=== PATIENT | male | born 1955 | race Caucasian/White ===

== ENCOUNTER 2021-01-15 06:56 | Day surgery (SDC) | payer BC ==
[2021-01-13 16:34] LABS: BASOPHILS # (AUTO) 0.1 X10'3 (0-0.2); BASOPHILS % (AUTO) 1.2 % (0-1); EOSINOPHILS # (AUTO) 0.3 X10'3 (0-0.9); LYMPHOCYTES # (AUTO) 2.9 X10'3 (1.1-4.8); LYMPHOCYTES % (AUTO) 30.3 % (21-51); MEAN CORPUSCULAR HEMOGLOBIN 31.4 PG (27.0-31.0); MEAN CORPUSCULAR HGB CONC 34.1 g/dL (33.0-36.5); MEAN CORPUSCULAR VOLUME 92.1 FL (78-98); MEAN PLATELET VOLUME 8.2 FL (7.4-10.4); MONOCYTES # (AUTO) 0.8 X10'3 (0-0.9); MONOCYTES % (AUTO) 8.7 % (2-12); NEUTROPHILS # (AUTO) 5.4 X10'3 (1.8-7.7); NEUTROPHILS % (AUTO) 56.8 % (42-75); PRE OP HEMATOCRIT 54.1 % (42.0-52.0); PRE OP PLATELET COUNT 237 X10'3 (140-440); RED BLOOD COUNT 5.88 X10'6 (4.70-6.10); RED CELL DISTRIBUTION WIDTH 14.4 % (11.5-14.5)
[2021-01-13 16:45] LABS: ALBUMIN 3.6 G/DL (3.4-5.0); ALKALINE PHOSPHATASE 66 IU/L (46-116); BLOOD UREA NITROGEN 21 MG/DL (7-18); BUN/CREATININE RATIO 16.3 (5.4-32.0); CALCIUM 9.2 MG/DL (8.5-10.1); CHLORIDE 104 MMOL/L (99-107); CREATININE 1.29 MG/DL (0.60-1.10); PRE OP ALT 52 U/L (30-65); PRE OP ANION GAP 12 (8-16); PRE OP AST 18 U/L (10-37); PRE OP BILIRUB, TOTAL 0.3 MG/DL (0.0-1.0); PRE OP GLUCOSE 188 MG/DL (70-104); PRE OP SODIUM 145 MMOL/L (135-145); TOTAL CARBON DIOXIDE 28.8 MMOL/L (24-32); TOTAL PROTEIN 7.3 G/DL (6.4-8.2); eGFR 56 ML/MIN
[2021-01-13 16:46] LABS: PRE OP HEMOGLOBIN 18.5 g/dL (14.0-17.9)
[2021-01-13 16:49] LABS: PRE OP POTASSIUM 3.2 MMOL/L (3.4-5.1)
[2021-01-15] VITALS (9 sets, daily range): BP systolic 121–152; BP diastolic 73–94
[~2021-01-15] VITALS: Ht 185.4 cm; Wt 132.4 kg
[~2021-01-15 06:56] MED LIST: ARMO150T6 PO; ATOR20TA66 PO; BUPIVAcaine/PF 2.5 mg/ml (0.25%) 30ml vial ONE; CANA300T PO; CHLO25TA10 PO; DULA1.5P SQ; FLUT1BLS13 PO; LIDOcaine 1% 30ml preserv. free vial ONE; POTA-82 PO; albuterol 2.5 MG/3 ML nebule NEB ONE; ceFAZolin inj. 3,000 MG in normal saline 100ml IV soln 100 ML IV ONE; famotidine 20mg tablet PO ONE; ringers solution, lacted 1,000 ML IV SCH
[2021-01-15] MEDS ORDERED: BUPIVAcaine HCl 0.25%/EPInephrine 1:200,000 inj. 10 ML VIAL ONE (07:19)
[2021-01-15] MEDS ORDERED: insulin regular, human U-100 3ml vial - multi-dose ONE (07:33)
[2021-01-15] MEDS ORDERED: sevoflurane 250ml liquid IH ONE (07:36)
[2021-01-15] MEDS ORDERED: midazolam 1 mg/ML 2ml injection ONE (07:37)
[2021-01-15] MEDS ORDERED: fentaNYL/PF 50MCG/1 ML 2ML syringe ONE (07:37)
[2021-01-15] MEDS ORDERED: ringers solution, lacted 1,000 ML IV SCH (08:45)
[2021-01-15] MEDS ORDERED: morphine 2 MG/ML inj. syringe IV PRN (08:45)
[2021-01-15] MEDS ORDERED: morphine 4 MG/ML inj SYRINge IV PRN (08:45)
[2021-01-15] MEDS ORDERED: ondansetron/PF 4mg/2ml inj IV PRN (08:45)
[2021-01-15] MEDS ORDERED: meperidine/PF 25mg/ml syringe IV PRN ×2 (08:45)
[2021-01-15] MEDS ORDERED: BUPIVAcaine/PF 2.5mg/ml (0.25%) 10ml vial ONE (08:46)
[2021-01-15] MEDS ORDERED: BUPIVACAINE liposomal/PF 13.3 MG/ML vial IM ONE (08:46)
[2021-01-15] MEDS ORDERED: meperidine/PF 25mg/ml syringe ONE (08:55)
--- NOTE | 2021-01-15 09:10 | NUR ---
ADMITTED TO PACU FROM OR ACCOMPANIED BY ANESTHESIA. INTIAL PHYSICAL ASSESSMENT DONE AND RECORDED. REPORT RECEIVED FROM ANESTHESIA.
[2021-01-15] MEDS ORDERED: oxyCODONE/APAP 5-325mg tablet PO PRN ×2 (09:25)
[2021-01-15] MEDS ORDERED: ondansetron/PF 4mg/2ml inj ONE (09:33)
[2021-01-15] MEDS ORDERED: rocuronium 10mg/ml inj IV ONE (09:33)
[2021-01-15] MEDS ORDERED: LIDOcaine 2% (20mg/ml) 5ml vial ONE (09:33)
[2021-01-15] MEDS ORDERED: succinylcholine 20mg/ml inj IV ONE (09:33)
[2021-01-15] MEDS ORDERED: neostigmine methylsulfate 1 MG/ML 10ml vial ONE (09:33)
[2021-01-15] MEDS ORDERED: glycopyrrolate 0.2mg/ml inj ONE (09:33)
[2021-01-15] MEDS ORDERED: acetaminophen 1,000mg/100ml IV 100 ML IV ONE (09:33)
[2021-01-15] MEDS ORDERED: propofol inj 20 ML IV ONE (09:33)
--- NOTE | 2021-01-15 10:30 | NUR ---
DISCHARGE CRITERIA MET, DISCHARGE INSTRUCTIONS GIVEN, DEMONSTRATES VERBAL UNDERSTANDING. DISCHARGED HOME IN GOOD CONDITION.
[2021-01-15 10:47] LABS: ISTAT CREATININE 1.4 mg/dL (0.8-1.3); ISTAT IONIZED CALCIUM 1.3 mmol/L (1.03-1.32); POC BUN/CREATININE RATIO 17.9 (5.4-32.0)
[2021-01-15 10:56] LABS: ISTAT CREATININE 1.4 mg/dL (0.8-1.3); ISTAT K 3.2 mmol/L (3.5-5.1)
[2021-01-15 10:57] LABS: ISTAT HGB 17.7 g/dl (14.0-18.0); ISTAT IONIZED CALCIUM 1.28 mmol/L (1.03-1.32)
[2021-01-15 10:58] LABS: POC BUN/CREATININE RATIO 17.9 (5.4-32.0)
[2021-01-15 11:43] LABS: ISTAT HGB 18.4 g/dl (14.0-18.0)
[2021-01-15] MEDS ORDERED: pneumococcal 23-VAL P-sac vacc 25 mcg/0.5ml vial IMVAC ONE (12:00)
== END 2021-01-15 10:30 | disposition home or self-care (01) ==
LOC: PAS 06:56
PROVIDERS: ATTEND Surgery
DX: K42.0 Umbilical hernia with obstruction, without gangrene (principal); E78.5 Hyperlipidemia, unspecified; E11.9 Type 2 diabetes mellitus without complications; G47.33 Obstructive sleep apnea (adult) (pediatric); I25.2 Old myocardial infarction; K21.9 Gastro-esophageal reflux disease without esophagitis; E66.01 Morbid (severe) obesity due to excess calories; Z68.38 Body mass index [BMI] 38.0-38.9, adult; Z98.890 Other specified postprocedural states; Z79.899 Other long term (current) drug therapy; F17.210 Nicotine dependence, cigarettes, uncomplicated; Z72.89 Other problems related to lifestyle; Z87.442 Personal history of urinary calculi; Z23 Encounter for immunization
CPT/HCPCS: 36415; 49653; 80047; 80053; 85025; 90471; 90732; 93005; C1781; C9290; J0131; J0330; J0690; J2001; J2175; J2250; J2405; J2704; J2710; J3010; J3490; S2900; A4215; A4618; J1815; J7120